=== PATIENT | male | born 1975 | race Caucasian/White ===

== ENCOUNTER 2017-12-05 21:33 | Emergency (ER) | payer BC, OTHER ==
[~2017-12-05] VITALS: Ht 185.4 cm; Wt 74.9 kg
[2017-12-05 22:09] LABS: MEAN CORPUSCULAR HEMOGLOBIN 32.6 pg (27.5-34.5); MEAN CORPUSCULAR HGB CONC 33.6 g/dL (33.2-36.2); MEAN PLATELET VOLUME 9.2 fL (7.4-10.4); PLATELET COUNT 209 x10^3/uL (130-400); RED BLOOD COUNT 4.07 x10^6/uL (4.38-5.82); RED CELL DISTRIBUTION WIDTH 14.7 % (9.4-14.8)
[2017-12-05 22:23] LABS: ALBUMIN 3.4 g/dL (3.4-5.0); ANION GAP 3 mmol/L (5-15); CALCIUM 8.6 mg/dL (8.5-10.1); CHLORIDE 104 mmol/L (98-107)
[2017-12-05 22:27] LABS: ALANINE AMINOTRANSFERASE 17 U/L (12-78); ALKALINE PHOSPHATASE 69 U/L (45-117); BILIRUBIN,TOTAL 0.8 mg/dL (0.2-1.0); CREATININE 1.13 mg/dL (0.7-1.3); TOTAL PROTEIN 7.5 g/dL (6.4-8.2)
[2017-12-05 22:32] LABS: BASOPHILS # (AUTO) 0.02 x10^3/uL (0-0.1); BASOPHILS % (AUTO) 0 % (0-1); EOSINOPHILS % (AUTO) 1 % (1-7); LYMPHOCYTES # (AUTO) 2.38 x10^3/uL (1-3.4); LYMPHOCYTES % (AUTO) 25 % (22-44); MD SCAN; MONOCYTES % (AUTO) 17 % (2-9); NEUTROPHILS # (AUTO) 5.53 x10^3/uL (1.8-6.8); NEUTROPHILS % (AUTO) 57 % (42-75)
[2017-12-05 22:53] LABS: MICROSCOPIC AUTO
[2017-12-05 23:16] LABS: CULTURE INDICATED? NO
[2017-12-05] MEDS ORDERED: AZITHROMYCIN 500 MG TABLET PO ONE (23:30)
[2017-12-05] MEDS ORDERED: CEFTRIAXONE 250 MG IM ONE (23:30)
[2017-12-05] MEDS ORDERED: CEFTRIAXONE 250 MG ONE (23:32)
[2017-12-05] MEDS ORDERED: AZITHROMYCIN 500 MG TABLET ONE (23:32)
[2017-12-06 00:10] VITALS: BP 125/80
== END 2017-12-06 00:12 | disposition home or self-care (01) ==
LOC: ED 23:59
DX: N34.1 Nonspecific urethritis (principal); R11.0 Nausea; R53.83 Other fatigue
CPT/HCPCS: 36415; 80053; 81001; 85025; 87491; 87591; 96372; 99284; J0696